=== PATIENT | female | born 1950 | race Caucasian/White ===

== ENCOUNTER 2020-04-17 11:05 | Emergency (ER) | payer MEDICARE ==
[2020-04-17 11:43] LABS: URINE BILIRUBIN - DIPSTICK NEGATIVE (NEGATIVE); URINE BLOOD DIPSTICK NEGATIVE (NEGATIVE); URINE COLOR YELLOW; URINE GLUCOSE - DIPSTICK >=1000 mg/dL (NEGATIVE); URINE KETONE NEGATIVE (NEGATIVE); URINE LEUK ESTERASE NEGATIVE (NEGATIVE); URINE NITRITE - DIPSTICK NEGATIVE (Negative); URINE PH 5.5 (4.5-8.0); URINE PROTEIN - DIPSTICK NEGATIVE (NEG-TRACE)
[2020-04-17 12:44] LABS: HEMATOCRIT 29.9 % (37.0-47.0); HEMOGLOBIN 10.4 g/dl (12.0-16.0); IMMATURE GRANULOCYTES 0.3 % (0.0-5.0); MEAN CELL VOLUME 116.8 fL CALC (80.0-100.0); MEAN CORPUSCULAR HGB 40.6 pG CALC (26.0-32.0); MEAN CORPUSCULAR HGB CONC 34.8 g/dL CAL (32.0-36.0); NEUT# 2.35 thou/uL (2.00-7.15); RED BLOOD COUNT 2.56 mill/uL (4.20-5.60)
[2020-04-17 13:02] LABS: ALBUMIN 4.6 g/dL (3.2-5.0); ALKALINE PHOSPHATASE 73 u/l (38-126); ANION GAP 13 (6-22 (CALC)); BILIRUBIN, TOTAL 1.7 mg/dL (0.0-1.4); BUN 14 mg/dL (8-23); BUN/CREATININE RATIO 25 (12-20 (CALC)); CARBON DIOXIDE 27 mmol/l (22-30); CHLORIDE 97 mmol/l (95-108); CREATININE 0.6 mg/dL (0.5-1.0); GFR > 60 ML/MIN (>=60 (CALC)); GFR FOR AFR.AMER. > 60 ML/MIN (>=60 (CALC)); LIPASE < 10 u/l (23-300); POTASSIUM 4.1 mmol/l (3.5-5.1); SGOT/AST 22 u/l (9-36); SODIUM 133 mmol/l (137-146); TOTAL PROTEIN 7.7 g/dL (6.3-8.2)
[2020-04-17] MEDS ORDERED: NOVOLOG100 UNIT/M (13:14)
[2020-04-17] MEDS ORDERED: GABAPENTIN100 MG PO (13:14)
[2020-04-17] MEDS ORDERED: SERTRALINE50 MG PO (13:14)
[2020-04-17] MEDS ORDERED: LIPITOR20 M1 PO (13:15)
[2020-04-17] MEDS ORDERED: LEVOTHYROXIN175 MC1 PO (13:15)
[2020-04-17] MEDS ORDERED: CALCI17 PO (13:16)
[2020-04-17] MEDS ORDERED: ZOFRAN4 MG/TAB PO (14:15)
[2020-04-17 14:21] VITALS: BP 147/67
== END 2020-04-17 14:22 | disposition home or self-care (01) ==
LOC: ED 11:05
PROVIDERS: Student in an Organized Health Care Education/Training Program
DX: R11.0 Nausea (principal); E11.9 Type 2 diabetes mellitus without complications; T38.3X6A Underdosing of insulin and oral hypoglycemic [antidiabetic] drugs, initial encounter; Z91.128 Patient's intentional underdosing of medication regimen for other reason; Z79.4 Long term (current) use of insulin